=== PATIENT | male | born 1935 | race Caucasian/White ===

== ENCOUNTER 2016-08-26 10:50 | Inpatient (IN) | payer OTHER ==
[~2016-08-26 10:50] MED LIST: CHLORHEXIDINE GLUC HIBICLENS 118 ML BTL TP ONE; ceFAZolin 2 GM/DEXTROSE 100 ML IV ONE; fentaNYL 100 MCG/2 ML INJ IT ONE; morphINE PF 5 MG/10 ML INJ IT ONE
[2016-08-26] MEDS ORDERED: LIDOCAINE 1% *Not for Epidural 20 ML MDV ONE (11:20)
[2016-08-26] MEDS ORDERED: CEFAZOLIN 2 GM/DEXTROSE/100 ML BAG IV ONE (11:39)
[2016-08-26] MEDS ORDERED: LIDOCAINE 1% 2 ML INJ ONE (11:39)
[2016-08-26 11:56] LABS: % IMMATURE GRANULYOCYTES 0.6 % (0.0-1.1); ABSOLUTE IMMATURE GRANULOCYTES 0.05 10^3/uL (0.00-0.10); ADD DIFF? NO; ADD MORPH? NO; ADD SCAN? NO; ATYPICAL LYMPHOCYTE FLAG 0 (0-99); FRAGMENT RBC FLAG 0 (0-99); HEMATOCRIT 45.7 % (40.0-51.0); HEMOGLOBIN 15.9 g/dL (13.7-17.5); LEFT SHIFT FLG 0 (0-99); LIPEMIA HEMOLYSIS FLAG 90 (0-99); MEAN CELL HEMOGLOBIN 30.3 pg (27.9-34.1); MEAN CELL HEMOGLOBIN CONCENTR. 34.8 g/dL (32.4-36.7); MEAN PLATELET VOLUME 9.8 fL (8.7-11.7); PLATELET CLUMPS FLAG 0 (0-99); PLATELET COUNT 267 10^3/uL (150-400); RED BLOOD CELL COUNT 5.25 10^6/uL (4.40-6.38); RED CELL DISTRIBUTION WIDTH 13.3 % (11.5-15.2)
[2016-08-26] MEDS ORDERED: LR 1,000 ML IV ONE (12:00)
[2016-08-26] MEDS ORDERED: THROMBIN (RECOMBINANT) 5,000 UNIT VIAL TP ONE (12:02)
[2016-08-26] MEDS ORDERED: BUPIVACAINE 0.25% 30 ML SDV ONE (12:03)
[2016-08-26] MEDS ORDERED: BUPIVACAINE/EPI 0.25% 30 ML SDV ONE (12:03)
[2016-08-26] MEDS ORDERED: BACITRACIN 50,000 UNITS/10 ML SYR IRR ONE (12:03)
[2016-08-26] MEDS ORDERED: PROPOFOL/EMULSION 500 MG/50 ML BOTTLE IV ONE (16:22)
[2016-08-26] MEDS ORDERED: PROPOFOL 200 MG/20 ML VIAL ONE (16:22)
[2016-08-26] MEDS ORDERED: fentaNYL 100 MCG/2 ML INJ ONE ×3 (16:24→18:17)
[2016-08-26] MEDS ORDERED: LIDOCAINE 2% 5 ML SDV ONE (16:26)
[2016-08-26] MEDS ORDERED: DESFLURANE 240 ML BOTTLE IH ONE (16:53)
[2016-08-26] MEDS ORDERED: ROCURONIUM 50 MG/5 ML VIAL ONE (16:55)
[2016-08-26] MEDS ORDERED: HYDROmorphONE/DILAUDID 2 MG/ML INJ ONE (16:59)
[2016-08-26] MEDS ORDERED: morphINE PF 5 MG/10 ML INJ ONE (18:17)
[2016-08-26] MEDS ORDERED: SUGAMMADEX SODIUM 200 MG/2 ML VIAL IVP ONE (18:31)
[2016-08-26] MEDS ORDERED: NALOXONE HCL 0.4 MG/ML INJ IVP PRN (18:46)
[2016-08-26] MEDS ORDERED: MAGNESIUM HYDROXIDE 30 ML UDCUP PO PRN (18:46)
[2016-08-26] MEDS ORDERED: DIAZEPAM 5 MG TAB PO PRN (18:46)
[2016-08-26] MEDS ORDERED: morphINE PCA 30 MG/30 ML PCA IV PRN (18:46)
[2016-08-26] MEDS ORDERED: LACTULOSE 20 GM/30 ML UDCUP PO PRN (18:46)
[2016-08-26] MEDS ORDERED: HYDROCODONE/APAP 10/325 TAB PO PRN (18:46)
[2016-08-26] MEDS ORDERED: OXYCODONE/APAP 5/325 TAB PO PRN (18:46)
[2016-08-26] MEDS ORDERED: BISACODYL 10 MG SUPP PR PRN (18:46)
[2016-08-26] MEDS ORDERED: ONDANSETRON DISINTEGRATING 4 MG TAB PO PRN (18:46)
[2016-08-26] MEDS ORDERED: DIAZEPAM 10 MG/2 ML SYR IVP PRN (18:46)
[2016-08-26] MEDS ORDERED: ONDANSETRON 4 MG/2 ML VIAL IVP PRN (18:46)
--- NOTE | 2016-08-26 18:55 | POSTOPPROG ---
Post Op Note Date of Operation: 08/26/16 Surgeon: Indra Craft Rag Production Worker: José Antonio Anesthesiologist: Lennox Anesthesia: GET(General Endotracheal) Pre-op Diagnosis: L5/S1 spondylolisthesis/HNP Post-op Diagnosis: same Indication: low back pain, left leg pain Procedure: L5/S1 TLIF Findings: DJD/HNP Inf/Abcess present in the surg proc area at time of surgery?: No EBL: 50-100 (100 ml) Complications: NOne Drains: Miguel A Pitts
--- NOTE | 2016-08-26 18:56 | SOAPPROG ---
SOAP Progress Note Assessment/Plan: Assessment: 81 yo M sp L5/S1 TLIF Plan: stable PT/OT LSO brace when OOB lovenox in am x-rays in am please call with neuro changes 08/26/16 18:56 Subjective: + lbp, no leg pain. Objective: Laboratory Results 08/26/16 11:41 somnolent PERRL, no facial droop ANNEMARIE x 4 + light touch ICD10 Worksheet Patient Problems: Problems Problem Status Onset Fusion of spine of lumbar region Acute - ICD10 Problem Qualifiers (1) Fusion of spine of lumbar region
[2016-08-26] MEDS ORDERED: NALOXONE HCL 0.4 MG/ML INJ ONE (19:00)
[2016-08-26] MEDS ORDERED: NS W/ 20 KCl/L 1,000 ML IV SCH (19:00)
--- NOTE | 2016-08-26 20:10 | GOP ---
[f rep st] OPERATIVE REPORT DATE OF OPERATION: 08/26/2016 SURGEON: Indra Craft MD NEUROSURGEON: Indra Craft MD PLUG SORTER: Romulo Chou PA-C ANESTHESIA: General endotracheal. 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 Intractable back and left leg pain. Failed conservative car e. High risk surgical candidate given age of 81 years, comorbidities, and required surgical interve ntion. 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 Intractable back and left leg pain. Failed conservative ca re. High risk surgical candidate given age of 81 years, comorbidities, and required surgical interv ention. PROCEDURE PERFORMED: Mini open exposure for a left-sided L5-S1 far lateral transpedicular decompres david with L5-S1 posterior nonsegmental (pedicle screw and axle device) fixation, and posterolateral fusion with local autograft, and bone morphogenic protein. L5-S1 posterior/transforaminal lumbar in terbody fusion with 2 structural PEEK interbody spacers, local autograft, and bone morphogenic prote in. Use of intraoperative microscopy, fluoroscopy and computer volumetric stereotactic navigation w ith intraoperative neurophysiologic testing. Injection of intrathecal narcotic analgesics and subcu taneous and intramuscular and local anesthesia for the postoperative pain control. FINDINGS: ESTIMATED BLOOD LOSS: 75 cc. INDICATIONS: The patient is an 81-year-old man with intractable low back pain and left lower extrem ity radicular symptoms secondary to severe degenerative joint disease and disk space collapse with c ritical neural foraminal encroachment on the left at the L5-S1 level requiring an extensive destabil izing decompression supplemented by instrumentation and fusion. DESCRIPTION OF PROCEDURE: After informed consent was obtained, the patient was taken to the operati ng room and placed in the prone position on the Miguel A table. The lumbosacral area was prepped and draped in a sterile fashion. After fluoroscopic localization of the correct levels, the subcutaneo us and intramuscular tissues were infiltrated with local anesthesia. A midline linear incision was then created with an L5-S1 spinous processes. This was carried down the fascial layer, which was in cised using the monopolar electrocautery and carried in a subperiosteal plane along the spinous proc esses and lamina bilaterally. Intraoperative fluoroscopy was utilized to verify the correct levels. Following this, the dissection was carried out over the facet joints. The patient had very large hypertrophied facets and an extensive left-sided far lateral transpedicular decompression was perfor med with complete unroofing of the facet joint, and neural foramina at L5 and S1. The central canal and lateral recess were also extensively decompressed. Following this, the Cortona3D neuronavigational system was brought in, and using computer volumetric s tereotactic navigation, pedicle screws were placed on the left at the L5 and S1 levels. Each indivi dual screw was tested neurophysiologically with monopolar electrostimulation and interpretation of t he potential by the surgeon. Biplanar fluoroscopy was also utilized to verify good position of the screws. A carleen was then placed and secured under distraction, during which time a complete diskectom y was performed with preparation of endplates and placement of 2 structural PEEK interbody spacers, local autograft and bone morphogenic protein for an L5-S1 posterior/transforaminal lumbar interbody fusion. The screw and carleen system was then placed in a slight amount of compression in order to faci litate bony union, and to minimize the potential for posterior graft migration. An axial device was then placed in lieu of right-sided pedicle screws in order to maximize the bony surface area for th e posterolateral fusion, and to minimize the additional risks associated with pedicle screws on that side. 200 mcg of Duramorph along with 50 mcg of fentanyl were then injected intrathecally for postoperativ e pain control. The subcutaneous and intramuscular tissues were re-infiltrated with local anesthesi a. The remaining lamina and facet joint on the right were extensively decorticated and the residual local autograft along with bone morphogenic protein was placed out laterally for a posterolateral f usion at the L5-S1 level. Following this, a drain was placed, and the wound was closed in a layered fashion using interrupted Vicryl sutures followed by Steri-Strips on the skin. COMPLICATIONS: None. DISPOSITION: The patient is currently in the process of being repositioned for extubation. /[id number]/MODL
[2016-08-26] MEDS ORDERED: NORTRIPTYLINE HCL 25 MG CAP PO SCH (21:00)
[2016-08-26] MEDS ORDERED: FAMOTIDINE 20 MG/NACL 50 ML IV SCH (21:00)
[2016-08-26] MEDS: SENNOSIDES/DOCUSATE SODIUM TAB PO SCH (22:11)
[2016-08-26] MEDS: NORTRIPTYLINE HCL 50 MG CAP PO SCH (22:12)
[2016-08-26] MEDS: morphINE SR 15 MG TAB PO SCH (22:12)
[2016-08-26] MEDS: PRAVASTATIN SODIUM 10 MG TAB PO SCH (22:12)
[2016-08-26] MEDS: POLYETHYLENE GLYCOL 3350 17 GM PKT PO SCH (22:13)
[2016-08-26] MEDS: INSULIN NPH HUMAN 100 UNITS/ML SYRINGE SC SCH (22:52)
[2016-08-27] MEDS: FAMOTIDINE 20 MG TAB PO SCH ×3 (00:41→20:31)
[2016-08-27] MEDS: diphenhydrAMINE 25 MG CAP PO PRN ×2 (01:15→13:13)
[2016-08-27 05:15] LABS: % IMMATURE GRANULYOCYTES 0.5 % (0.0-1.1); ABSOLUTE IMMATURE GRANULOCYTES 0.05 10^3/uL (0.00-0.10); ADD DIFF? NO; ADD MORPH? NO; ADD SCAN? NO; ATYPICAL LYMPHOCYTE FLAG 0 (0-99); FRAGMENT RBC FLAG 0 (0-99); HEMATOCRIT 40.8 % (40.0-51.0); HEMOGLOBIN 14.1 g/dL (13.7-17.5); LEFT SHIFT FLG 10 (0-99); LIPEMIA HEMOLYSIS FLAG 90 (0-99); MEAN CELL HEMOGLOBIN 30.5 pg (27.9-34.1); MEAN CELL HEMOGLOBIN CONCENTR. 34.6 g/dL (32.4-36.7); MEAN CELL VOLUME 88.1 fL (81.5-99.8); MEAN PLATELET VOLUME 10.2 fL (8.7-11.7); PLATELET CLUMPS FLAG 0 (0-99); PLATELET COUNT 218 10^3/uL (150-400); RED BLOOD CELL COUNT 4.63 10^6/uL (4.40-6.38); RED CELL DISTRIBUTION WIDTH 13.2 % (11.5-15.2)
[2016-08-27 05:34] LABS: ANION GAP 11 mEq/L (8-16); CARBON DIOXIDE 23 mEq/l (22-31); CHLORIDE 104 mEq/L (97-110); CREATININE 1.1 mg/dL (0.7-1.3); GLOMERULAR FILTRATION RATE > 60; GLUCOSE 212 mg/dL (70-100); POTASSIUM 4.9 mEq/L (3.5-5.2); SODIUM 138 mEq/L (134-144)
[2016-08-27] MEDS: POLYETHYLENE GLYCOL 3350 17 GM PKT PO SCH ×3 (08:13→20:33)
[2016-08-27] MEDS: INSULIN NPH HUMAN 100 UNITS/ML SYRINGE SC SCH ×2 (08:13→20:49)
[2016-08-27] MEDS: ENOXAPARIN 40 MG/0.4 ML SYR SC SCH (08:13)
[2016-08-27] MEDS: LISINOPRIL 2.5 MG TAB PO SCH (08:14)
[2016-08-27] MEDS: SENNOSIDES/DOCUSATE SODIUM TAB PO SCH ×2 (08:14→20:32)
[2016-08-27] MEDS: ISOSORBIDE MONONITRATE 30 MG TAB.SR PO SCH (08:14)
[2016-08-27] MEDS: morphINE SR 15 MG TAB PO SCH ×2 (08:14→20:32)
[2016-08-27] MEDS: PANTOPRAZOLE SODIUM 40 MG TAB PO SCH (08:15)
[2016-08-27] MEDS: FINASTERIDE 5 MG TAB PO SCH (08:15)
--- NOTE | 2016-08-27 09:42 | NEUSURGPN ---
Assessment/Plan: Assessment: 81 yo M sp L5/S1 TLIF POD1 Plan: Optimize pain management PT/OT LSO brace when OOB DVT prophx: TEDs, SCDs, lovenox x-rays pending Continue SARAH drain this morning please call with neuro changes Subjective: Nausea, denies any new leg pain Objective: NAD A&Ox3 MAEx4 5/5 and equal in BUE and BLE, except left quad with some pain restricted movement - Physician Discussed Patient with : Luana Neurosurgery Physical Exam - Vitals, I&O, Labs I and O 08/26/16 08/27/16 08/28/16 05:59 05:59 05:59 Intake Total 2200 Output Total 350 45 Balance 1850 -45 Weight 71.668 kg Intake: Oral (ml) 400 IV Intake (ml) 1800 Output: Estimated Blood Loss (ml) 100 Wound Drainage (ml) 250 45 Left Back Miguel A Pitts 250 45 Other: Bladder Scan Volume (ml) Urinal 801 Post Void Residual Scan Volume (ml) Urinal 57 Number of Emesis 1 Occurrences Vital Signs Temp Pulse Resp BP Pulse Ox 36.8 C 76 16 157/76 H 95 08/27/16 03:55 08/27/16 03:55 08/27/16 03:55 08/27/16 08:14 08/27/16 03:55 Laboratory Results 08/27/16 04:40 08/27/16 04:40 ICD10 Worksheet Patient Problems: Problems Problem Status Onset Fusion of spine of lumbar region Acute
[2016-08-27] MEDS: METHOCARBAMOL 750 MG TAB PO PRN (12:30)
[2016-08-27] MEDS: oxyCODONE IR 5 MG TAB PO PRN ×3 (12:30→20:32)
[2016-08-27] MEDS: NORTRIPTYLINE HCL 50 MG CAP PO SCH (20:31)
[2016-08-27] MEDS: PRAVASTATIN SODIUM 10 MG TAB PO SCH (20:31)
[2016-08-28] MEDS: diphenhydrAMINE 25 MG CAP PO PRN (05:05)
[2016-08-28] MEDS: INSULIN NPH HUMAN 100 UNITS/ML SYRINGE SC SCH ×2 (11:02→21:52)
[2016-08-28] MEDS: SENNOSIDES/DOCUSATE SODIUM TAB PO SCH ×2 (11:03→21:42)
[2016-08-28] MEDS: PANTOPRAZOLE SODIUM 40 MG TAB PO SCH (11:03)
[2016-08-28] MEDS: LISINOPRIL 2.5 MG TAB PO SCH (11:03)
[2016-08-28] MEDS: morphINE SR 15 MG TAB PO SCH ×2 (11:04→21:42)
[2016-08-28] MEDS: ENOXAPARIN 40 MG/0.4 ML SYR SC SCH (11:04)
[2016-08-28] MEDS: FAMOTIDINE 20 MG TAB PO SCH ×2 (11:04→21:41)
[2016-08-28] MEDS: ISOSORBIDE MONONITRATE 30 MG TAB.SR PO SCH (11:05)
[2016-08-28] MEDS: FINASTERIDE 5 MG TAB PO SCH (11:06)
[2016-08-28] MEDS: POLYETHYLENE GLYCOL 3350 17 GM PKT PO SCH ×3 (11:06→21:42)
--- NOTE | 2016-08-28 11:36 | NEUSURGPN ---
Date of Surgery: 08/26/16 Post Op Day: 2 Assessment/Plan: Assessment: 81 yo M sp L5/S1 TLIF POD1 Plan: Optimize pain management PT/OT LSO brace when OOB DVT prophx: TEDs, SCDs, lovenox x-rays show good hardware placement Continue SARAH drain this morning flores placed for ongoing urinary retention. will consult urology for follow up and management please call with neuro changes d/w Dr. Ferrari Subjective: doing well overall, still weak. at bedside and wants to consider rehab tomorrow because she is not able to help at home Objective: NAD VSS AAOx3 EOMI, no facial drop MAEx4 BLE 5/5= jpx1 incision cdi flores in place Urinary Catheter in Place: Yes Urinary Catheter Indication: Acute Urinary Retention Catheter Insertion Date: 08/28/16 Neurosurgery Physical Exam - Vitals, I&O, Labs I and O 08/27/16 08/28/16 08/29/16 05:59 05:59 05:59 Intake Total 2200 500 Output Total 350 1520 Balance 1850 -1020 Weight 71.668 kg Intake: Oral (ml) 400 500 IV Intake (ml) 1800 Output: Urine (ml) 1350 Catheter 1350 Estimated Blood Loss (ml) 100 Wound Drainage (ml) 250 170 Left Back Miguel A Pitts 250 170 Other: Intake Quantity Yes Sufficient Output Comment Catheter pt. had 600 ml pre cath and 0 s/p cath Number of Voids Catheter 1 Bladder Scan Volume (ml) Catheter 701 Urinal 801 Post Void Residual Scan Volume (ml) Urinal 57 Number of Emesis 1 Occurrences Vital Signs Temp Pulse Resp BP Pulse Ox 37.1 C 89 16 115/66 97 08/28/16 07:37 08/28/16 07:37 08/28/16 07:37 08/28/16 11:05 08/28/16 07:37 Laboratory Results 08/27/16 04:40 08/27/16 04:40 ICD10 Worksheet Patient Problems: Problems Problem Status Onset Fusion of spine of lumbar region Acute
[2016-08-28] MEDS: NORTRIPTYLINE HCL 50 MG CAP PO SCH (21:40)
[2016-08-28] MEDS: PRAVASTATIN SODIUM 10 MG TAB PO SCH (21:41)
[2016-08-29] MEDS: METHOCARBAMOL 750 MG TAB PO PRN ×2 (06:18→17:39)
[2016-08-29] MEDS: FAMOTIDINE 20 MG TAB PO SCH ×2 (10:48→22:10)
[2016-08-29] MEDS: FINASTERIDE 5 MG TAB PO SCH (10:48)
[2016-08-29] MEDS: POLYETHYLENE GLYCOL 3350 17 GM PKT PO SCH ×3 (10:49→22:09)
[2016-08-29] MEDS: PANTOPRAZOLE SODIUM 40 MG TAB PO SCH (10:49)
[2016-08-29] MEDS: SENNOSIDES/DOCUSATE SODIUM TAB PO SCH ×2 (10:50→22:10)
[2016-08-29] MEDS: ENOXAPARIN 40 MG/0.4 ML SYR SC SCH (10:52)
[2016-08-29] MEDS: morphINE SR 15 MG TAB PO SCH ×2 (10:53→22:10)
[2016-08-29] MEDS: ISOSORBIDE MONONITRATE 30 MG TAB.SR PO SCH (11:00)
[2016-08-29] MEDS: LISINOPRIL 2.5 MG TAB PO SCH (11:00)
[2016-08-29] MEDS: INSULIN NPH HUMAN 100 UNITS/ML SYRINGE SC SCH ×3 (11:00→23:08)
[2016-08-29 11:23] LABS: COLOR YELLOW; LEUKOCYTE ESTERASE,URINE NEGATIVE (NEGATIVE); NITRITE,URINE NEGATIVE (NEGATIVE)
[2016-08-29 11:33] LABS: MUCUS TRACE /lpf (NONE-1+); RBC,URINE 25-50 /hpf (0-3); WBC,URINE 15-25 /hpf (0-3)
--- NOTE | 2016-08-29 11:55 | NEUSURGPN ---
Assessment/Plan: Assessment: 81 yo M sp L5/S1 TLIF POD1 Plan: UA for confusion, will also decrease/minimize pain med Optimize pain management PT/OT LSO brace when OOB DVT prophx: TEDs, SCDs, lovenox x-rays show good hardware placement Continue SARAH drain for one more day flores placed for ongoing urinary retention. Pt should f/u w/ urology after discharge for flores. Spoke to Tali Meza at [facility] and she can see next week please call with neuro changes Dispo when able d/w Dr. Ferrari Subjective: pt feeling a little off, and has neck pain today. at bedside and states he has not been himself since last night. Objective: Alert, oriented to self, relative place, not time NAD VSS no facial droop EOMI, PEARLA MAEx4 BLE 5/5 +LT jPX1 incision c/d/i Urinary Catheter in Place: Yes Urinary Catheter Indication: Acute Urinary Retention Catheter Insertion Date: 08/28/16 - Physician Discussed Patient with DrSergio: Luana Neurosurgery Physical Exam - Vitals, I&O, Labs I and O 08/28/16 08/29/16 08/30/16 05:59 05:59 05:59 Intake Total 500 800 Output Total 1520 640 Balance -1020 160 Intake: Oral (ml) 500 800 Output: Urine (ml) 1350 600 Catheter 1350 600 Wound Drainage (ml) 170 40 Left Back Miguel A Pitts 170 40 Other: Intake Quantity Yes Yes Sufficient Output Comment Catheter pt. had 600 ml pre cath and 0 s/p cath Number of Voids Catheter 1 Bladder Scan Volume (ml) Catheter 701 Vital Signs Temp Pulse Resp BP Pulse Ox 37.1 C 79 15 116/59 L 98 08/29/16 08:00 08/29/16 08:00 08/29/16 08:00 08/29/16 08:00 08/29/16 08:00 Laboratory Results 08/27/16 04:40 08/27/16 04:40 ICD10 Worksheet Patient Problems: Problems Problem Status Onset Fusion of spine of lumbar region Acute
[2016-08-29] MEDS: ACETAMINOPHEN 325 MG TAB PO PRN ×2 (17:39→22:32)
[2016-08-29] MEDS: PRAVASTATIN SODIUM 10 MG TAB PO SCH (22:10)
[2016-08-29] MEDS: NORTRIPTYLINE HCL 50 MG CAP PO SCH (22:11)
--- NOTE | 2016-08-30 07:31 | NEUSURGPN ---
Date of Surgery: 08/26/16 Post Op Day: 4 Assessment/Plan: Assessment: 81 yo M sp L5/S1 TLIF POD #4 Plan: -UA for confusion-final cultures pending-noted increase RBCs and WBCs -decreased/minimized pain med over weekend to see if help with confusion-will stop MSContin today -optimize pain management with more immediate release meds/tylenol -PT/OT-CPM -LSO brace when OOB -DVT prophx: TEDs, SCDs, on lovenox -x-rays show good hardware placement -remove SARAH drain today/change dressing -flores placed for ongoing urinary retention -Pt should f/u w/ urology after discharge for Flores. Over weekend we spoke to Tali Meza PA-C at [facility] and she can see next week -please call with neuro changes -dispo when able Subjective: Pt with continued confusion. No gannon/neck/chest/abd complaints. No f/c/n/v/d. Objective: Alert, oriented to self, relative place, not time, NAD AFVSS/no facial droop EOMI, PEARLA MAEx4 BLE 5/5 +LT jPX1 incision c/d/i Neuro Check Frequency: per routine Urinary Catheter in Place: Yes Urinary Catheter Indication: Acute Urinary Retention Catheter Insertion Date: 08/28/16 - Physician Discussed Patient with : Luana Neurosurgery Physical Exam - Vitals, I&O, Labs I and O 08/29/16 08/30/16 08/31/16 05:59 05:59 05:59 Intake Total 800 100 Output Total 640 580 Balance 160 -480 Intake: Oral (ml) 800 100 Output: Urine (ml) 600 550 Catheter 600 550 Wound Drainage (ml) 40 30 Left Back Miguel A Pitts 40 30 Other: Intake Quantity Yes Sufficient Vital Signs Temp Pulse Resp BP Pulse Ox 36.9 C 71 17 121/60 H 92 08/30/16 03:22 08/30/16 03:22 08/30/16 03:22 08/30/16 03:22 08/30/16 03:22 Laboratory Results 08/27/16 04:40 08/27/16 04:40 ICD10 Worksheet Patient Problems: Problems Problem Status Onset Fusion of spine of lumbar region Acute
[2016-08-30] MEDS: SENNOSIDES/DOCUSATE SODIUM TAB PO SCH ×2 (08:48→22:09)
[2016-08-30] MEDS: LISINOPRIL 2.5 MG TAB PO SCH (08:48)
[2016-08-30] MEDS: ENOXAPARIN 40 MG/0.4 ML SYR SC SCH (08:49)
[2016-08-30] MEDS: ISOSORBIDE MONONITRATE 30 MG TAB.SR PO SCH (08:49)
[2016-08-30] MEDS: POLYETHYLENE GLYCOL 3350 17 GM PKT PO SCH ×3 (08:49→22:09)
[2016-08-30] MEDS: FINASTERIDE 5 MG TAB PO SCH (08:49)
[2016-08-30] MEDS: FAMOTIDINE 20 MG TAB PO SCH ×2 (08:49→22:04)
[2016-08-30] MEDS: INSULIN NPH HUMAN 100 UNITS/ML SYRINGE SC SCH ×2 (08:52→22:23)
[2016-08-30] MEDS: ACETAMINOPHEN 325 MG TAB PO PRN ×3 (08:53→22:04)
[2016-08-30] MEDS: PANTOPRAZOLE SODIUM 40 MG TAB PO SCH (09:17)
--- NOTE | 2016-08-30 10:30 | GCON ---
[f rep st] CONSULTATION REFERRING PHYSICIAN: Indra Craft MD REASON FOR CONSULTATION: Acute encephalopathy. HISTORY OF PRESENT ILLNESS: an 81-year-old male with history of CAD status post 2 stents 40 years ago, chronic low back pain and L5/S1 spondylolisthesis who underwent an L5-S1 TLIF on 08/26/2016. Hewas doing well postop, but then became more altered yesterday. Today, he complains of neck pain, 8/10, stiff in quality. His lower back hurts with moving, 9/10; Feels dull and achy. Complains of right arm swelling where IV was previously. No dizziness, nausea, vomiting, diarrhea. No numbness. Complained of dysuria and decrease in urinary output for a week prior to admission. He has retention here and had a Hawley placed. Denies chest pain, shortness of breath or cough. REVIEW OF SYSTEMS: A complete 10-point review of systems negative except as noted in HPI. PAST MEDICAL HISTORY: 1. Lower back pain. 2. Leg pain secondary to L5-S1 spondylolisthesis. 3. Urinary retention. 4. CAD status post stents x2. PAST SURGICAL HISTORY: 1. Bilateral cataract surgery. 2. Cholecystectomy. 3. Diabetes. FAMILY HISTORY: Father with cancer and mother with heart disease. SOCIAL HISTORY: Lives alone with his . 16 years. Smoked tobacco remotely for 4 years. No alcohol or illicits. HOME MEDICATIONS: Multivitamin, NPH 40 units daily with sliding scale 3-16 units subcu at bedtime, herbal supplement, aspirin 81, Imdur 30 mg daily, Proscar 5 mg daily, pravastatin 10 mg at bedtime, Protonix 40 mg daily, Pamelor 50 mg at bedtime, Zestril 2.5 mg daily. ALLERGIES: No known drug allergies. PHYSICAL EXAM: VITAL SIGNS: Temperature 36.9, blood pressure 162/62, heart rate 70s, respirations 15, 94% on 2 liters. GENERAL: Sitting up in bed, no acute distress. HEENT: PERRLA, EOMI. Oropharynx clear without exudate. CV: Regular rate and rhythm. No murmurs, gallops, or rubs. LUNGS: Clear to auscultation bilaterally. ABDOMEN: Soft, mildly distended but not tender. Positive bowel sounds throughout. : Hawley in place with clear yellow urine. No suprapubic tenderness. MUSCULOSKELETAL: Moving all 4 extremities. Lumbar surgical site is dressed, clean, dry and intact. NEURO: 2 through 12 intact. PSYCHIATRIC: Alert and oriented to self, place, not exact date. LABS: Urinalysis: 15-25 WBCs. BMP and CBC are pending. Point of care glucose 125-295. Lumbar spine x-ray, 08/27/2016: New, well positioned, left unilateral posterior fusion construct at L5-S1. ASSESSMENT AND PLAN: 1. Acute encephalopathy:multifactorial given the patient's advanced age, positive urinalysis concerning for a urinary tract infection and medications. Will try to minimize opioids but want to ensure pain is well controlled. Will treat for a urinary tract infection until cultures return with IV ceftriaxone. 2. Given history of coronary artery disease, will check troponin and EKG. 3. Urinary tract infection. Patient recently complaining of dysuria and urinary retention. Treat with IV ceftriaxone. Cultures are pending. 4. Coronary artery disease, remote. Continue blood pressure control, statin. Resume aspirin when okay by neurosurgeon. 5. Accelerated hypertension. Suspect pain is playing a role. Continue Zestril and Imdur. 6. Uncontrolled diabetes. Patient on Humulin 40 during the day and a sliding scale at night. Plan for a scheduled dose in the evening for better control along with sliding scale insulin. 7. Gastroesophageal reflux disease. Continue proton pump inhibitor. 8. Diet: Regular. 9. DVT prophylaxis. 10. Enoxaparin. 11. Disposition. Thank you for this consultation. We will follow along. Please call if any questions. /[id number]/MODL MTDD
[2016-08-30 10:33] LABS: HEMATOCRIT 36.3 % (40.0-51.0); HEMOGLOBIN 12.4 g/dL (13.7-17.5); MEAN CELL HEMOGLOBIN 30.1 pg (27.9-34.1); MEAN CELL HEMOGLOBIN CONCENTR. 34.2 g/dL (32.4-36.7); MEAN CELL VOLUME 88.1 fL (81.5-99.8); RED BLOOD CELL COUNT 4.12 10^6/uL (4.40-6.38); RED CELL DISTRIBUTION WIDTH 12.8 % (11.5-15.2)
[2016-08-30 11:03] LABS: ANION GAP 13 mEq/L (8-16); CALCIUM 9.2 mg/dL (8.5-10.4); CARBON DIOXIDE 25 mEq/l (22-31); CHLORIDE 94 mEq/L (97-110); GLOMERULAR FILTRATION RATE > 60; GLUCOSE 248 mg/dL (70-100); POTASSIUM 4.6 mEq/L (3.5-5.2); SODIUM 132 mEq/L (134-144)
--- NOTE | 2016-08-30 11:32 | CPEKG ---
Heart Rate: 83 RR Interval: 723 P-R Interval: 212 QRSD Interval: 148 QT Interval: 400 QTC Interval: 470 P Bergholz: 26 QRS Bergholz: 65 T Wave Bergholz: 27 EKG Severity - ABNORMAL ECG - EKG Impression: SINUS RHYTHM EKG Impression: PROBABLE LEFT ATRIAL ABNORMALITY EKG Impression: RIGHT BUNDLE BRANCH BLOCK Electronically Signed By: Shaheen Liu 30-Aug-2016 14:21:44
[2016-08-30] MEDS: NORTRIPTYLINE HCL 50 MG CAP PO SCH (22:04)
[2016-08-30] MEDS: PRAVASTATIN SODIUM 10 MG TAB PO SCH (22:04)
[2016-08-31] MEDS: ACETAMINOPHEN 325 MG TAB PO PRN ×3 (06:06→22:16)
[2016-08-31] MEDS: POLYETHYLENE GLYCOL 3350 17 GM PKT PO SCH ×3 (08:33→22:17)
[2016-08-31] MEDS: SENNOSIDES/DOCUSATE SODIUM TAB PO SCH ×2 (08:33→22:17)
--- NOTE | 2016-08-31 08:41 | HOSPPROG ---
Hospitalist Progress Note Assessment/Plan: #Acute encephalopathy: improving today. Multifactorial with advanced age, pain meds. Trop and EKG negative for ischemia +UA, but negative culture. Stopped MS Contin. #Urinary retention: h/o BPH and was off Finasteride. Will try pulling flores tomorrow. If unsuccessful, will replace and FU with [facility] #L5-S1 spondylolisthesis: s/p fusion #Acute on chronic pain: due to surgery. Pain controlled today #h/o CAD: statin, Imdur. Not on BB or ASA #Deconditioning: PT recommends SNF, d/w SW #Benign HTN: cont home meds #Controlled DM: cont NPH #Diet: regular #Disp: awaiting placement Subjective: walked the unit today Objective: Vital Signs Temp Pulse Resp BP Pulse Ox 36.5 C 78 16 143/77 H 96 08/31/16 04:00 08/31/16 04:00 08/31/16 04:00 08/31/16 04:00 08/31/16 04:00 Laboratory Results 08/30/16 10:22 08/30/16 10:22 08/30/16 08/31/16 09/01/16 05:59 05:59 05:59 Intake Total 100 500 Output Total 580 350 Balance -480 150 - Physical Exam Constitutional: no apparent distress Eyes: PERRL Ears, Nose, Mouth, Throat: moist mucous membranes, hearing normal Cardiovascular: regular rate and rhythym, no murmur, rub, or gallop Respiratory: no respiratory distress, no rales or rhonchi Gastrointestinal: normoactive bowel sounds, soft, non-tender abdomen Genitourinary: no bladder fullness, flores in urethra Skin: warm, normal color Musculoskeletal: full muscle strength Neurologic: other (alert to all, but date.) Psychiatric: interacting appropriately ICD10 Worksheet Patient Problems: Problems Problem Status Onset Fusion of spine of lumbar region Acute
[2016-08-31 09:09] LABS: ANION GAP 10 mEq/L (8-16); CALCIUM 8.9 mg/dL (8.5-10.4); CARBON DIOXIDE 29 mEq/l (22-31); CHLORIDE 96 mEq/L (97-110); GLOMERULAR FILTRATION RATE > 60; GLUCOSE 134 mg/dL (70-100); POTASSIUM 4.3 mEq/L (3.5-5.2); SODIUM 135 mEq/L (134-144)
[2016-08-31] MEDS: FAMOTIDINE 20 MG TAB PO SCH ×2 (09:20→22:16)
[2016-08-31] MEDS: ENOXAPARIN 40 MG/0.4 ML SYR SC SCH (09:20)
[2016-08-31] MEDS: PANTOPRAZOLE SODIUM 40 MG TAB PO SCH (09:21)
[2016-08-31] MEDS: ISOSORBIDE MONONITRATE 30 MG TAB.SR PO SCH (09:24)
[2016-08-31] MEDS: LISINOPRIL 2.5 MG TAB PO SCH (09:24)
[2016-08-31] MEDS: INSULIN NPH HUMAN 100 UNITS/ML SYRINGE SC SCH ×2 (09:59→22:16)
--- NOTE | 2016-08-31 10:39 | NEUSURGPN ---
Assessment/Plan: Assessment: 81 yo M sp L5/S1 TLIF POD #5 Plan: -UA for confusion-final cultures NGTD-noted increase RBCs and WBCs -decreased/minimized pain med over weekend to see if help with confusion-MS Contin stopped and this seems to have improved today -optimize pain management with more immediate release meds/tylenol -PT/OT-CPM -LSO brace when OOB -DVT prophx: TEDs, SCDs, on lovenox -x-rays show good hardware placement -flores placed for ongoing urinary retention -Pt should f/u w/ urology after discharge for Flores. Over weekend we spoke to Tali Meza PA-C at [facility] and she can see next week -please call with neuro changes -dispo when able when cleared by therapies -Discussed with Dr. Ferrari Subjective: Patient states he has expected back pain but is managed well. He feels cleared today after stopping MS Contin. Objective: NAD, VSS Alert and oriented X 3 Speech fluent BLE 5/5= Sensation intact to lt touch Incision c/d/i-dressed Urine culture- NGTD Catheter Insertion Date: 08/28/16 - Physician Discussed Patient with : Luana Neurosurgery Physical Exam - Vitals, I&O, Labs I and O 08/30/16 08/31/16 09/01/16 05:59 05:59 05:59 Intake Total 100 500 Output Total 580 350 Balance -480 150 Intake: Oral (ml) 100 500 Output: Urine (ml) 550 350 Catheter 550 350 Wound Drainage (ml) 30 Left Back Miguel A Pitts 30 Other: Number of Stools Bedside Commode 1 Catheter 1 Microbiology 08/29/16 11:35 Urine Culture - Final Urine,Clean Catch Vital Signs Temp Pulse Resp BP Pulse Ox 36.5 C 78 16 113/60 96 08/31/16 04:00 08/31/16 04:00 08/31/16 04:00 08/31/16 09:24 08/31/16 04:00 Laboratory Results 08/30/16 10:22 08/31/16 08:30 ICD10 Worksheet Patient Problems: Problems Problem Status Onset Fusion of spine of lumbar region Acute
[2016-08-31] MEDS: FINASTERIDE 5 MG TAB PO SCH (12:12)
[2016-08-31] MEDS: NORTRIPTYLINE HCL 50 MG CAP PO SCH (22:16)
[2016-08-31] MEDS: PRAVASTATIN SODIUM 10 MG TAB PO SCH (22:16)
[2016-08-31 23:19] VITALS: RESP 16
[2016-09-01] MEDS: ACETAMINOPHEN 325 MG TAB PO PRN ×2 (05:03→15:57)
[2016-09-01 05:33] LABS: ANION GAP 10 mEq/L (8-16); CALCIUM 8.8 mg/dL (8.5-10.4); CARBON DIOXIDE 26 mEq/l (22-31); CHLORIDE 99 mEq/L (97-110); GLOMERULAR FILTRATION RATE > 60; GLUCOSE 75 mg/dL (70-100); POTASSIUM 3.5 mEq/L (3.5-5.2); SODIUM 135 mEq/L (134-144)
--- NOTE | 2016-09-01 08:02 | SOAPPROG ---
SOAP Progress Note Assessment/Plan: Assessment: 81 yo M POD # L5/S1 TLIF Plan: stable encephalopathy, improving, appreciate IM help with medical issues UTI: on abx LSO brace when OOB lovenox/scd/mariely for dvt prophylaxis x-rays look good dc habitat conservation planner looking at placement options please call with neuro changes discussed with Dr Franco 08/26/16 18:56 09/01/16 07:57 Subjective: back pain improving, no leg pain, no weakness. Objective: Vital Signs Temp Pulse Resp BP Pulse Ox 37.1 C 69 16 126/63 H 95 09/01/16 07:16 09/01/16 07:16 09/01/16 07:16 09/01/16 07:16 09/01/16 07:16 Microbiology 08/29/16 11:35 Urine Culture - Final Urine,Clean Catch Laboratory Results 08/30/16 10:22 09/01/16 05:00 08/31/16 09/01/16 09/02/16 05:59 05:59 05:59 Intake Total 500 700 Output Total 350 1100 Balance 150 -400 Awake, oriented to name, place, month, confused on year. PERRL, EOMI, no facial droop 5/5 + light touch C/D/I ICD10 Worksheet Patient Problems: Problems Problem Status Onset Fusion of spine of lumbar region Acute - ICD10 Problem Qualifiers (1) Fusion of spine of lumbar region
--- NOTE | 2016-09-01 08:51 | HOSPPROG ---
Hospitalist Progress Note Assessment/Plan: #Acute encephalopathy: near baseline per . Improved off high-dose opioids. Trop and EKG negative for ischemia +UA, but negative culture. Stopped MS Contin. #Urinary retention: h/o BPH and was off Finasteride. Pulled flores today to avoid CA-UTI. If no output, can straight cath. Pt and agreed and if still retention, will replace and FU with [facility] #L5-S1 spondylolisthesis: s/p fusion #Acute on chronic pain: due to surgery. Pain controlled today #h/o CAD: statin, Imdur. Not on BB or ASA. Per , Imdur was stopped and I confirmed this by reviewing his clinic note dated 08/23 #Deconditioning: PT recommends SNF, d/w SW #Benign HTN: cont home meds #Controlled DM: cont NPH #Diet: regular #Disp: accepted to [facility] Will sign off, please call if questions Subjective: feeling better today. BM this morning Objective: Vital Signs Temp Pulse Resp BP Pulse Ox 37.1 C 69 16 126/63 H 95 09/01/16 07:16 09/01/16 07:16 09/01/16 07:16 09/01/16 07:16 09/01/16 07:16 Microbiology 08/29/16 11:35 Urine Culture - Final Urine,Clean Catch Laboratory Results 08/30/16 10:22 09/01/16 05:00 08/31/16 09/01/16 09/02/16 05:59 05:59 05:59 Intake Total 500 700 Output Total 350 1100 Balance 150 -400 - Physical Exam Constitutional: no apparent distress Eyes: PERRL Ears, Nose, Mouth, Throat: moist mucous membranes Cardiovascular: regular rate and rhythym Respiratory: no respiratory distress Gastrointestinal: normoactive bowel sounds, soft, non-tender abdomen Genitourinary: other (flores removed) Skin: warm Musculoskeletal: other (brace in place) Neurologic: AAOx3 (alert to all except exact date) Psychiatric: interacting appropriately, not anxious ICD10 Worksheet Patient Problems: Problems Problem Status Onset Fusion of spine of lumbar region Acute
[2016-09-01] MEDS: INSULIN NPH HUMAN 100 UNITS/ML SYRINGE SC SCH (10:03)
[2016-09-01] MEDS: PANTOPRAZOLE SODIUM 40 MG TAB PO SCH (10:04)
[2016-09-01] MEDS: FAMOTIDINE 20 MG TAB PO SCH (10:04)
[2016-09-01] MEDS: LISINOPRIL 2.5 MG TAB PO SCH (10:04)
[2016-09-01] MEDS: ENOXAPARIN 40 MG/0.4 ML SYR SC SCH (10:06)
[2016-09-01] MEDS: FINASTERIDE 5 MG TAB PO SCH (10:10)
[2016-09-01] MEDS: POLYETHYLENE GLYCOL 3350 17 GM PKT PO SCH ×2 (10:24→15:19)
[2016-09-01] MEDS: SENNOSIDES/DOCUSATE SODIUM TAB PO SCH (10:24)
[2016-09-01] MEDS: ISOSORBIDE MONONITRATE 30 MG TAB.SR PO SCH (10:27)
--- NOTE | 2016-09-01 10:33 | PDIAF ---
- Diagnosis Code Status: Full Code - Medication Management Discharge Medications: Medications to Continue on Transfer Aspirin [Aspirin 81mg (*)] 81 mg PO DAILY 08/09/16 [Last Taken 08/18/16] Finasteride [Proscar 5 MG (*)] 5 mg PO DAILY 08/09/16 [Last Taken 08/25/16] Herbals/Supplements -Info Only 1 ea PO DAILY 08/09/16 [Last Taken 08/18/16] Insulin NPH Human [humULIN N 100 UNITS/ML (*)] 13 - 16 units SC HS 08/09/16 [ Last Taken 08/25/16] Insulin NPH Human [humULIN N 100 UNITS/ML (*)] 40 units SC DAILY 08/09/16 [Last Taken 08/24/16] Lisinopril [Zestril 2.5 mg (*)] 2.5 mg PO DAILY 08/09/16 [Last Taken 08/24/16] Multivitamins [Multivitamin (*)] 1 each PO DAILY 08/09/16 [Last Taken 08/18/16] Nortriptyline HCl [Pamelor 25 mg (*)] 50 mg PO HS 08/09/16 [Last Taken 08/24/16] Pantoprazole Sodium [Protonix 40mg (*)] 40 mg PO DAILY 08/09/16 [Last Taken ] Pravastatin Sodium [Pravachol] 10 mg PO HS 08/09/16 [Last Taken 08/24/16] Acetaminophen [Tylenol 325mg (*)] 325 - 650 mg PO Q4HRS PRN #0 tab 09/01/16 [ Last Taken Unknown] Enoxaparin [Lovenox 40 MG (*)] 40 mg SC DAILY #0 syr 09/01/16 [Last Taken Unknown] Methocarbamol [Robaxin 750 mg (*)] 750 mg PO QID PRN #0 tab 09/01/16 [Last Taken Unknown] Discharge Medications: Refer to the Discharge Home Medication list for PRN reason. - Orders Services needed: Registered Nurse, Physical Therapy, Occupational Therapy Diet Recommendation: no restrictions on diet Diet Texture: Regular Texture Diet Additional: ok to have dressing off. Remove steri strips on 09/09/16 - Follow Up Care Current Providers and Referrals: Cristian Ruiz [Primary Care Provider] -
[2016-09-01 11:15] VITALS: O2SAT 93
[2016-09-01] MEDS: METHOCARBAMOL 750 MG TAB PO PRN (15:57)
[2016-09-01 16:47] VITALS: BP 130/59; PULSE 86; TEMP 98.9
== END 2016-09-01 17:37 | DRG 459 ==
LOC: F3N 10:50
PROVIDERS: ADMIT Neurological Surgery; ATTEND Neurological Surgery
PROC: 0SG30AJ Fusion of Lumbosacral Joint with Interbody Fusion Device, Posterior Approach, Anterior Column, Open Approach (ICD-10-PCS; principal; 2016-08-26 13:45)
PROC: 3E0U0GB Introduction of Recombinant Bone Morphogenetic Protein into Joints, Open Approach (ICD-10-PCS; principal; 2016-08-26 13:45)
PROC: 8E0WXBF Computer Assisted Procedure of Trunk Region, With Fluoroscopy (ICD-10-PCS; principal; 2016-08-26 13:45)
PROC: 0SG3071 Fusion of Lumbosacral Joint with Autologous Tissue Substitute, Posterior Approach, Posterior Column, Open Approach (ICD-10-PCS; principal; 2016-08-26 13:45)
PROC: 00NY0ZZ Release Lumbar Spinal Cord, Open Approach (ICD-10-PCS; principal; 2016-08-26 13:45)
PROC: 01NB0ZZ Release Lumbar Nerve, Open Approach (ICD-10-PCS; principal; 2016-08-26 13:45)
PROC: 4A1004G Monitoring of Central Nervous Electrical Activity, Intraoperative, Open Approach (ICD-10-PCS; principal; 2016-08-26 13:45)
PROC: 0ST40ZZ Resection of Lumbosacral Disc, Open Approach (ICD-10-PCS; principal; 2016-08-26 13:45)
DX: M47.27 Other spondylosis with radiculopathy, lumbosacral region (principal); M43.17 Spondylolisthesis, lumbosacral region; G93.40 Encephalopathy, unspecified; N39.0 Urinary tract infection, site not specified; R33.9 Retention of urine, unspecified; I25.10 Atherosclerotic heart disease of native coronary artery without angina pectoris; I10 Essential (primary) hypertension; E78.5 Hyperlipidemia, unspecified; E11.65 Type 2 diabetes mellitus with hyperglycemia; K21.9 Gastro-esophageal reflux disease without esophagitis; Z95.5 Presence of coronary angioplasty implant and graft
CPT/HCPCS: 97110-GP; 97116-GP; 97161-GP; 97165-GO; 97530-GO; 97535-GO; C1713; G8978-GP-CI; G8979-GP-CI; G8987-GO-CJ; G8988-GO-CI; J0690; J0696; J1170; J1650; J1815; J2274; J2310; J2405; J2704; J3010